=== PATIENT | female | born 1995 | race Caucasian/White ===

== ENCOUNTER 2019-07-09 11:03 | Emergency (ER) | payer OTHER, SELFPAY ==
[~2019-07-09] VITALS: Ht 167.6 cm; Wt 65.9 kg
[2019-07-09 11:03] VITALS: BP 126/83
[2019-07-09 11:46] LABS: BASO % 0.6 % (0.0-1.0); EOS # 0.1 10^3/uL (0.0-0.5); EOS % 1.7 % (0.0-3.0); HEMATOCRIT 40.5 % (36.0-47.0); HEMOGLOBIN 13.4 g/dl (12.0-15.5); LYMPH # 1.7 10^3/uL (1.5-5.0); MEAN CORPUSCULAR HEMOGLOBIN 31.1 pg (27.0-33.0); MEAN CORPUSCULAR HGB CONC 33.1 g/dl (32.0-36.5); MONO # 0.4 10^3/uL (0.0-0.8); MONO % 7.8 % (0.0-5.0); NEUTROPHILS % 57.7 % (36.0-66.0); PLATELET COUNT, AUTOMATED 178 10^3/uL (150-450); RED BLOOD COUNT 4.31 10^6/uL (4.00-5.40); WHITE BLOOD COUNT 5.2 10^3/uL (4.0-10.0)
[2019-07-09 13:36] LABS: ALBUMIN 3.8 GM/DL (3.2-5.2); ALT/SGPT 16 U/L (12-78); BILIRUBIN,TOTAL 0.2 MG/DL (0.2-1.0); BLOOD UREA NITROGEN 7 MG/DL (7-18); CALCIUM LEVEL 9.5 MG/DL (8.5-10.1); CARBON DIOXIDE LEVEL 29 MEQ/L (21-32); CHLORIDE LEVEL 106 MEQ/L (98-107); CREATININE FOR GFR 0.87 MG/DL (0.55-1.30); GLOMERULAR FILTRATION RATE > 60.0 (>60); GLUCOSE, FASTING 69 MG/DL (70-100); POTASSIUM SERUM 3.9 MEQ/L (3.5-5.1); SODIUM LEVEL 142 MEQ/L (136-145)
[2019-07-10 07:58] LABS: AMYLASE 52 U/L (25-115); LIPASE 167 U/L (73-393)
== END 2019-07-09 12:33 | disposition left against medical advice (07) ==
LOC: M ED 11:03
DX: O03.9 Complete or unspecified spontaneous abortion without complication (principal); F17.210 Nicotine dependence, cigarettes, uncomplicated

== ENCOUNTER 2019-09-01 14:54 | Emergency (ER) | payer OTHER ==
[~2019-09-01] VITALS: Ht 165.1 cm; Wt 65.9 kg
[2019-09-01 17:06] VITALS: BP 143/82
== END 2019-09-01 17:08 | disposition home or self-care (01) ==
LOC: M ED 14:54
DX: F43.0 Acute stress reaction (principal); F17.210 Nicotine dependence, cigarettes, uncomplicated

== ENCOUNTER 2019-12-22 11:19 | Emergency (ER) | payer OTHER ==
[~2019-12-22] VITALS: Ht 165.1 cm; Wt 78.2 kg
[2019-12-22 12:22] VITALS: BP 114/75
[2019-12-22] MEDS ORDERED: LIDOCAINE VISCOUS 2% SOLN 15ML UDC SS ONE (12:30)
[2019-12-22] MEDS ORDERED: LIDO2SO PO (12:38)
[2019-12-22 12:59] LABS: INFLUENZA A AMPLIFICATION NEGATIVE (NEGATIVE); INFLUENZA B AMPLIFICATION NEGATIVE (NEGATIVE)
== END 2019-12-22 12:48 | disposition home or self-care (01) ==
LOC: M ED 11:19
DX: J02.9 Acute pharyngitis, unspecified (principal); B34.9 Viral infection, unspecified